=== PATIENT | male | born 1990 | race Caucasian/White ===

== ENCOUNTER 2018-04-26 12:36 | Emergency (ER) | payer OTHER ==
[~2018-04-26] VITALS: Ht 175.3 cm; Wt 176.9 kg
[2018-04-26 12:50] VITALS: BP 141/87; Ht 175.3 cm; Wt 176.9 kg
== END 2018-04-26 13:48 | disposition home or self-care (01) ==
LOC: ED 12:36
DX: J02.9 Acute pharyngitis, unspecified (principal)